=== PATIENT | female | born 1975 | race American Indian/Alaskan Native ===

== ENCOUNTER 2017-04-11 13:40 | Emergency (ER) | payer SELFPAY ==
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
[2017-04-11] MEDS: TORADOL IM ONE (16:22)
[2017-04-11 18:00] LABS: Bilirubin,Urine NEG (Negative); Blood,Urine MOD (Negative); Ketones,Urine NEG (Negative); Leukocyte Esterase,Urine NEG (Negative); Nitrite,Urine NEG (Negative); Protein,Urine <15 mg/dL mg/dL (Negative); Urobilinogen,Urine < 2.0 mg/dL (<2.0); WBC,Urine < 1.0 /HPF (0.0-6.0)
[2017-04-11 18:04] LABS: Bacteria,Urine 1+ /HPF (Negative)
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
--- NOTE | 2017-04-11 19:00 | Cat Scan Report ---
FINAL REPORT PROCEDURE: CT CERVICAL SPINE WO CON TECHNIQUE: Computerized tomography of the cervical spine was performed from the skull base to T1 without contrast material. HISTORY: neck pain, arm numbness COMPARISON: No prior studies are available for comparison. FINDINGS: C1-2: No significant abnormality. C2-3: No significant abnormality. C3-4: Small bony overgrowth at the left neuroforamen at C3-4 resulting in suspected mild to moderate left neuroforaminal narrowing C4-5: Mild broad disc bulge suspected. Minimal left neuroforaminal narrowing secondary to bony overgrowth. C5-6: Obscured by artifact related to shoulders and motion. There may be a moderate broad disc bulge with central disc protrusion but indeterminate due to artifacts. Recommend MRI correlation. C6-7: No significant abnormality. C7-T1: No significant abnormality. Other: No additional findings. IMPRESSION: Evidence to suggest mild to minimal left neuroforaminal narrowing C3-4 C4-5 secondary to bony overgrowth. Possible disc bulging and or protrusion at C5-6 indeterminate. Recommend MRI cervical spine to better evaluate the discs and nerve root sleeves.
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
[2017-04-11 22:19] VITALS: BP 115/69
== END 2017-04-11 19:15 | disposition left against medical advice (07) ==
LOC: ED 13:40
DX: S90.32XA Contusion of left foot, initial encounter (principal); S39.012A Strain of muscle, fascia and tendon of lower back, initial encounter; R20.0 Anesthesia of skin; M54.2 Cervicalgia; V49.49XA Driver injured in collision with other motor vehicles in traffic accident, initial encounter; Y93.9 Activity, unspecified; Y92.9 Unspecified place or not applicable; Y99.9 Unspecified external cause status
CPT/HCPCS: 70450; 72100; 72125; 73630; 81001; 81025; 96372; 99284; J1885; J2930

== ENCOUNTER 2017-04-14 20:20 | Emergency (ER) | payer SELFPAY ==
[2017-04-15] MEDS ORDERED: CLEOCIN IM ONE (01:34)
[2017-04-15] MEDS ORDERED: PERCOCET 5/325 PO ONE (01:34)
[2017-04-15] MEDS ORDERED: BOOSTRIX IM ONE (01:34)
[2017-04-15] MEDS ORDERED: TRIPLE ANTIBIOTIC TP ONE (01:34)
--- NOTE | 2017-04-15 01:34 | Emergency Department Report ---
- General Chief complaint: Extremity Injury, Lower Stated complaint: LT FOOT PAIN, LT TOE PAIN Time Seen by Provider: 04/14/17 23:48 Source: patient, family Mode of arrival: Ambulatory Limitations: No Limitations - History of Present Illness Initial comments: Patient reports that on Wednesday which was 2 days ago she had a pedicure and her toes to both feet had drain in around the nail bed. She said they were using 0 on her toes and she thinks that it infected her toes. She reports pain throughout a 10. And she also reports that she saw yellow pus coming from around the toes. She also said that the nail to her big toe on right foot is cracked down the middle. Pain is worse with movement and touch that it rests. She says she took [id number] pain medication but it did not help. Her tetanus vaccine is not up-to-date. MD complaint: other (complaining of infected great toe to both feet after getting pedicure) Onset/Timin -: days(s) Tetanus Up to Date: no Location: L foot (left great toe), R foot Severity: mild Severity scale (0 -10): 3 Quality: sharp Consistency: constant Improves with: immobilization, rest Worsens with: palpation, movement Context: other (injury to nail bed on both feet) Associated symptoms: athralgias Treatments Prior to Arrival: attempted to drain pus at, OTC topical medication - Related Data Previous Rx's Medication Instructions Recorded Last Taken Type Cyclobenzaprine [Flexeril] 10 mg PO TID PRN #15 tablet 04/11/17 Unknown Rx Naproxen [Naprosyn] 500 mg PO BID #20 tablet 04/11/17 Unknown Rx Acetaminophen/Codeine [Tylenol 1 tab PO Q6H PRN #12 tab 04/15/17 Unknown Rx /Codeine # 3 tab] Cephalexin [Keflex] 500 mg PO Q8HR #21 cap 04/15/17 Unknown Rx Ibuprofen [Motrin] 600 mg PO Q8H PRN #15 tablet 04/15/17 Unknown Rx Allergies Allergy/AdvReac Type Severity Reaction Status Date / Time No Known Allergies Allergy Unverified 04/11/17 13:53 Abscess Boil HPI - HPI Chief Complaint: Extremity Injury, Lower Stated Complaint: LT FOOT PAIN, LT TOE PAIN Time Seen by Provider: 04/14/17 23:48 Home Medications: Previous Rx's Medication Instructions Recorded Last Taken Type Cyclobenzaprine [Flexeril] 10 mg PO TID PRN #15 tablet 04/11/17 Unknown Rx Naproxen [Naprosyn] 500 mg PO BID #20 tablet 04/11/17 Unknown Rx Acetaminophen/Codeine [Tylenol 1 tab PO Q6H PRN #12 tab 04/15/17 Unknown Rx /Codeine # 3 tab] Cephalexin [Keflex] 500 mg PO Q8HR #21 cap 04/15/17 Unknown Rx Ibuprofen [Motrin] 600 mg PO Q8H PRN #15 tablet 04/15/17 Unknown Rx Allergies/Adverse Reactions: Allergies Allergy/AdvReac Type Severity Reaction Status Date / Time No Known Allergies Allergy Unverified 04/11/17 13:53 ED Review of Systems ROS: Stated complaint: LT FOOT PAIN, LT TOE PAIN Other details as noted in HPI Comment: All other systems reviewed and negative Constitutional: no symptoms reported Respiratory: no symptoms reported Cardiovascular: denies: chest pain, palpitations, dyspnea on exertion, orthopnea , edema, syncope, paroxysmal nocturnal dyspnea Gastrointestinal: denies: abdominal pain, nausea, vomiting, diarrhea, constipation Musculoskeletal: arthralgia, other (nail bed injury). denies: back pain, joint swelling, myalgia Skin: other (sent report that infection around toenail.) Neurological: abnormal gait (due to pain from infected toenails). denies: headache, weakness, numbness, paresthesias, confusion ED Past Medical Hx - Past Medical History Previous Medical History?: No - Surgical History Past Surgical History?: No - Family History Family history: no significant - Social History Smoking Status: Never Smoker Substance Use Type: None - Medications Home Medications: Home Medications Medication Instructions Recorded Confirmed Last Taken Type Cyclobenzaprine [Flexeril] 10 mg PO TID PRN #15 tablet 04/11/17 Unknown Rx Naproxen [Naprosyn] 500 mg PO BID #20 tablet 04/11/17 Unknown Rx Acetaminophen/Codeine [Tylenol 1 tab PO Q6H PRN #12 tab 04/15/17 Unknown Rx /Codeine # 3 tab] Cephalexin [Keflex] 500 mg PO Q8HR #21 cap 04/15/17 Unknown Rx Ibuprofen [Motrin] 600 mg PO Q8H PRN #15 tablet 04/15/17 Unknown Rx ED Physical Exam - General Limitations: No Limitations General appearance: alert, in no apparent distress - Head Head exam: Present: atraumatic, normocephalic, normal inspection - Eye Eye exam: Present: normal appearance, PERRL, EOMI Pupils: Present: normal accommodation - Neck Neck exam: Present: normal inspection, full ROM. Absent: tenderness, meningismus, lymphadenopathy - Respiratory Respiratory exam: Present: normal lung sounds bilaterally. Absent: respiratory distress, wheezes, chest wall tenderness, accessory muscle use, decreased breath sounds - Cardiovascular Cardiovascular Exam: Present: regular rate, normal rhythm, normal heart sounds. Absent: systolic murmur, diastolic murmur - GI/Abdominal GI/Abdominal exam: Present: soft, normal bowel sounds. Absent: distended - Extremities Exam Extremities exam: Present: normal inspection, full ROM, normal capillary refill , other (no clubbing, cyanosis or edema to extremities. +2 pulses to extremities. No neurovascular compromise). Absent: tenderness, pedal edema, joint swelling, calf tenderness - Neurological Exam Neurological exam: Present: alert, oriented X3, abnormal gait (due to the pain to great toes on both feet), reflexes normal. Absent: motor sensory deficit - Psychiatric Psychiatric exam: Present: normal affect, normal mood - Skin Skin exam: Present: warm, dry, intact, erythema, other (patient with tenderness to great toenail on both feet.). Absent: petechiae, pallor - Expanded Skin Exam Expanded Type of lesion: Present: other (tenderness and erythema to great toe on both feet. No drainage noted.) Distribution of rash: other (great toes both feet) Description of rash: Present: tenderness, erythematous, swelling (mild swelling great toes both feet), other (nailbed intact. Nail intact to nailbed. Noted nail cracked without any nail bed injury.). Absent: confluent, bullous, petechial, purpuic, urticarial, crusting, discharge, fluctuant, indurated ED Course Vital Signs 04/14/17 21:05 Temperature 98.1 F Pulse Rate 71 Respiratory 20 Rate Blood Pressure 111/66 [Right] O2 Sat by Pulse 100 Oximetry - Reevaluation(s) Reevaluation #1: 04/15/17 02:22 Both great toes cleansed with iodine and normal saline and Neosporin ointment and placed followed by sterile dry dressing. Patient given crutches at her request because she said it's difficult for her to ambulate. Patient given [place] 5/325 2 tablets, clindamycin 600 mg IM and Boostrix 0.5 mL emergency room with no adverse reaction. ED Medical Decision Making - Medical Decision Making ED Course: Patient here reported that she has nail injury to great toes on both feet. She said this happened at the nail shop 2 days ago. She said she has pus coming from around her nailbed with nail injury to great toe on right foot. Patient that she is having pain worse with walking. Physical findings for intact nail on nailbed without any damage to cuticles but damage to right great toenail with cellulitis around great toenail to both feet. Patient was given Boostrix 0.5 mL injection, clindamycin 600 mg injection in emergency room to update tetanus and infection. She was given [place] 5/325 2 tablets emergency room for pain to great toenails. Patient requested crutches because she said it 's difficult to bear weight. Both great toenails cleansed with iodine and normal saline and Neosporin ointment placed followed by sterile dry dressing. I discussed the patient she will need to follow up with sock ironer for further evaluation and treatment. Patient discharged home in stable condition with prescription for Tylenol No. 3, Motrin and Keflex. Critical care attestation.: If time is entered above; I have spent that time in minutes in the direct care of this critically ill patient, excluding procedure time. ED Disposition Clinical Impression: Toe pain, bilateral Cellulitis of great toe Qualifiers: Laterality: unspecified laterality Qualified Code(s): L03.039 - Cellulitis of unspecified toe Disposition: - TO HOME OR SELFCARE Is pt being admited?: No Does the pt Need Aspirin: No Condition: Stable Instructions: Arthralgia (ED), Cellulitis (ED), Paronychia (ED) Additional Instructions: keep affected areas clean and dry Take antibiotic as prescribed Consult feet in Epsom salts twice daily and dry toes and apply Neosporin ointment. Tylenol 3 causes drowsiness so please do not drive or operate heavy machinery while taking this medication Prescriptions: Acetaminophen/Codeine [Tylenol /Codeine # 3 tab] 1 tab PO Q6H PRN #12 tab PRN Reason: Pain Cephalexin [Keflex] 500 mg PO Q8HR #21 cap Ibuprofen [Motrin] 600 mg PO Q8H PRN #15 tablet PRN Reason: Pain Referrals: LIANG BROWN DPM [Staff Physician] - 04/16/17 [facility] [Outside] - 04/16/17 Forms: Work/School Release Form(ED)
[2017-04-15 03:29] VITALS: BP 116/70
== END 2017-04-15 03:00 | disposition home or self-care (01) ==
LOC: ED 20:20
DX: L03.032 Cellulitis of left toe (principal); L03.031 Cellulitis of right toe; M79.675 Pain in left toe(s); M79.674 Pain in right toe(s); X58.XXXA Exposure to other specified factors, initial encounter; Y93.89 Activity, other specified; Y92.89 Other specified places as the place of occurrence of the external cause; Y99.8 Other external cause status
CPT/HCPCS: 90471; 90715; 96372; A6250

== ENCOUNTER 2017-04-16 12:44 | Emergency (ER) | payer SELFPAY ==
[2017-04-16 13:30] VITALS: BP 140/88
== END 2017-04-16 13:25 | disposition left against medical advice (07) ==
LOC: ED 12:44
DX: Z53.21 Procedure and treatment not carried out due to patient leaving prior to being seen by health care provider (principal)

== ENCOUNTER 2017-04-25 05:54 | Emergency (ER) | payer SELFPAY ==
[2017-04-25 07:56] LABS: Anion Gap 16 mmol/L; BUN/Creatinine Ratio 13; Basophils % (Auto) 0.4 % (0.0-1.8); Blood Urea Nitrogen 9 mg/dL (7-17); Calcium 8.6 mg/dL (8.4-10.2); Carbon Dioxide 28 mmol/L (22-30); Chloride 102.3 mmol/L (98-107); Eosinophils % (Auto) 1.7 % (0.0-4.3); Glucose 94 mg/dL (65-100); Hematocrit 38.3 % (30.3-42.9); Hemoglobin 12.2 gm/dl (10.1-14.3); Mean Corpuscular HGB Conc 32 % (30-34); Mean Corpuscular Hemoglobin 28 pg (28-32); Mean Corpuscular Volume 89 fl (79-97); Platelet Count 251 K/mm3 (140-440); Red Blood Count 4.31 M/mm3 (3.65-5.03); Red Cell Distribution Width 15.2 % (13.2-15.2); Sodium 142 mmol/L (137-145); White Blood Count 8.9 K/mm3 (4.5-11.0)
[2017-04-25 08:54] LABS: Bilirubin,Urine NEG (Negative); Blood,Urine NEG (Negative); Ketones,Urine NEG (Negative); Leukocyte Esterase,Urine TR (Negative); Mucus,Urine FEW /HPF; Nitrite,Urine NEG (Negative); Protein,Urine <15 mg/dL mg/dL (Negative); Urobilinogen,Urine < 2.0 mg/dL (<2.0); WBC,Urine < 1.0 /HPF (0.0-6.0)
[2017-04-25] MEDS ORDERED: BACTRIM DS PO ONE (14:27)
[2017-04-25] MEDS ORDERED: TORADOL IM ONE (14:27)
[2017-04-25] MEDS ORDERED: NORCO 5/325 PO ONE (14:27)
[2017-04-25] MEDS ORDERED: ZOFRAN ODT PO ONE (14:52)
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
[2017-04-25 15:00] VITALS: BP 138/75
== END 2017-04-25 15:35 | disposition home or self-care (01) ==
LOC: ED 05:54
DX: L03.032 Cellulitis of left toe (principal); J02.9 Acute pharyngitis, unspecified; M79.7 Fibromyalgia
CPT/HCPCS: 36415; 80048; 81001; 84484; 84703; 85025; 93005; 93010; 96372; 99284; J1885; Q0162

== ENCOUNTER 2018-09-13 19:24 | Emergency (ER) | payer OTHER ==
[2018-09-13] MEDS ORDERED: PEPCID PO STA (20:41)
[2018-09-13] MEDS ORDERED: DELTASONE PO STA (20:41)
--- NOTE | 2018-09-13 20:41 | Emergency Department Report ---
Blank Doc - Documentation Documentation: bitten by bed bugs last night and now has pruritis and sob. no fever or chills. dizziness.
[2018-09-13 20:43] VITALS: BP 106/66
--- NOTE | 2018-09-13 21:39 | XRay Report ---
PROCEDURE: XR CHEST ROUTINE 2V TECHNIQUE: PA and lateral chest radiographs were obtained. HISTORY: sob post bed but bites COMPARISONS: None. FINDINGS: Heart: Normal. Mediastinum/Vessels: Normal. Lungs/Pleural space: Normal. Bony thorax: No acute osseous abnormality. IMPRESSION: Normal examination. This document is electronically signed by Aleksandr Garcia MD., September 13 2018 09:36:43 PM ET
[2018-09-13] MEDS ORDERED: ZOFRAN ODT PO ONE (22:21)
[2018-09-13] MEDS ORDERED: IBUPROFEN PO ONE (22:21)
--- NOTE | 2018-09-13 22:22 | Emergency Department Report ---
- General Chief complaint: Skin Rash Stated complaint: DIZZY/BODY RASH Time Seen by Provider: 09/13/18 20:39 Source: patient Mode of arrival: Ambulatory Limitations: No Limitations - History of Present Illness Initial comments: 42-year-old -[place] female presented to the emergency room stating she woke up on Wednesday with bedbug bites all over her. Patient stated she started getting dizzy last night. She complains of generalized weakness and heaviness in her chest. Patient reports that she is itching and is painful. Patient admits that she is nauseated no vomiting, any nose and runny eyes. Last took a Goody powder about 4 PM she took a Benadryl about 4 PM she is followed by Dr. Velazquez at [facility]. MD complaint: insect bite/sting -: days(s) (1) Severity: severe Severity scale (0 -10): 10 - Related Data Previous Rx's Medication Instructions Recorded Last Taken Type Cyclobenzaprine [Flexeril] 10 mg PO TID PRN #15 tablet 04/11/17 Unknown Rx Naproxen [Naprosyn] 500 mg PO BID #20 tablet 04/11/17 Unknown Rx Acetaminophen/Codeine [Tylenol 1 tab PO Q6H PRN #12 tab 04/15/17 Unknown Rx /Codeine # 3 tab] cephALEXin [Keflex] 500 mg PO Q8HR #21 cap 04/15/17 Unknown Rx HYDROcodone/APAP 5-325 [[place] 1 each PO Q6HR PRN #20 tablet 04/25/17 Unknown Rx 5/325] Ondansetron [Zofran Odt] 4 mg PO Q8HR PRN #20 tab.rapdis 04/25/17 Unknown Rx Sulfamethoxazole/Trimethoprim 1 each PO BID #20 tablet 04/25/17 Unknown Rx [Bactrim DS TAB] Cetirizine HCl [ZyrTEC] 10 mg PO QDAY #30 capsule 09/13/18 Unknown Rx Ibuprofen [Motrin 600 MG tab] 600 mg PO Q8H PRN #15 tablet 09/13/18 Unknown Rx Allergies Allergy/AdvReac Type Severity Reaction Status Date / Time No Known Allergies Allergy Verified 09/13/18 19:30 Abscess Boil HPI - HPI Chief Complaint: Skin Rash Stated Complaint: DIZZY/BODY RASH Time Seen by Provider: 09/13/18 20:39 Home Medications: Previous Rx's Medication Instructions Recorded Last Taken Type Cyclobenzaprine [Flexeril] 10 mg PO TID PRN #15 tablet 04/11/17 Unknown Rx Naproxen [Naprosyn] 500 mg PO BID #20 tablet 04/11/17 Unknown Rx Acetaminophen/Codeine [Tylenol 1 tab PO Q6H PRN #12 tab 04/15/17 Unknown Rx /Codeine # 3 tab] cephALEXin [Keflex] 500 mg PO Q8HR #21 cap 04/15/17 Unknown Rx HYDROcodone/APAP 5-325 [[place] 1 each PO Q6HR PRN #20 tablet 04/25/17 Unknown Rx 5/325] Ondansetron [Zofran Odt] 4 mg PO Q8HR PRN #20 tab.rapdis 04/25/17 Unknown Rx Sulfamethoxazole/Trimethoprim 1 each PO BID #20 tablet 04/25/17 Unknown Rx [Bactrim DS TAB] Cetirizine HCl [ZyrTEC] 10 mg PO QDAY #30 capsule 09/13/18 Unknown Rx Ibuprofen [Motrin 600 MG tab] 600 mg PO Q8H PRN #15 tablet 09/13/18 Unknown Rx Allergies/Adverse Reactions: Allergies Allergy/AdvReac Type Severity Reaction Status Date / Time No Known Allergies Allergy Verified 09/13/18 19:30 ED Review of Systems ROS: Stated complaint: DIZZY/BODY RASH Other details as noted in HPI Comment: All other systems reviewed and negative Constitutional: denies: chills, fever Eyes: denies: eye pain, eye discharge, vision change ENT: denies: ear pain, throat pain Respiratory: denies: cough, shortness of breath, wheezing Cardiovascular: denies: chest pain, palpitations Skin: rash ED Past Medical Hx - Past Medical History Previous Medical History?: Yes Additional medical history: Cellulitis of feet. Fibromyalgia, chronic pain - Surgical History Past Surgical History?: Yes Additional Surgical History: , Tonsillectomy, - Social History Smoking Status: Never Smoker Substance Use Type: None - Medications Home Medications: Home Medications Medication Instructions Recorded Confirmed Last Taken Type Cyclobenzaprine [Flexeril] 10 mg PO TID PRN #15 tablet 04/11/17 Unknown Rx Naproxen [Naprosyn] 500 mg PO BID #20 tablet 04/11/17 Unknown Rx Acetaminophen/Codeine [Tylenol 1 tab PO Q6H PRN #12 tab 04/15/17 Unknown Rx /Codeine # 3 tab] cephALEXin [Keflex] 500 mg PO Q8HR #21 cap 04/15/17 Unknown Rx HYDROcodone/APAP 5-325 [[place] 1 each PO Q6HR PRN #20 tablet 04/25/17 Unknown Rx 5/325] Ondansetron [Zofran Odt] 4 mg PO Q8HR PRN #20 tab.rapdis 04/25/17 Unknown Rx Sulfamethoxazole/Trimethoprim 1 each PO BID #20 tablet 04/25/17 Unknown Rx [Bactrim DS TAB] Cetirizine HCl [ZyrTEC] 10 mg PO QDAY #30 capsule 09/13/18 Unknown Rx Ibuprofen [Motrin 600 MG tab] 600 mg PO Q8H PRN #15 tablet 09/13/18 Unknown Rx ED Physical Exam - General Limitations: No Limitations General appearance: alert, in no apparent distress - Head Head exam: Present: atraumatic, normocephalic - Eye Eye exam: Present: normal appearance - ENT ENT exam: Present: mucous membranes moist - Neck Neck exam: Present: normal inspection - Neurological Exam Neurological exam: Present: alert, oriented X3 - Psychiatric Psychiatric exam: Present: normal affect, normal mood - Skin Skin exam: Present: warm, dry, intact. Absent: rash ED Course Vital Signs 09/13/18 09/13/18 09/13/18 20:38 21:10 22:45 Temperature 99 F Pulse Rate 76 64 Respiratory 16 18 15 Rate Blood Pressure 106/66 O2 Sat by Pulse 99 100 Oximetry ED Medical Decision Making - Medical Decision Making Patient has been evaluated by this provider and [facility]. Was not able to appreciate any rashes. Discussed the patient take [id number] Claritin. Critical care attestation.: If time is entered above; I have spent that time in minutes in the direct care of this critically ill patient, excluding procedure time. ED Disposition Clinical Impression: Bed bug bite Qualifiers: Encounter type: initial encounter Qualified Code(s): W57.XXXA - Bitten or stung by nonvenomous insect and other nonvenomous arthropods, initial encounter Disposition: DC- TO HOME OR SELFCARE Is pt being admited?: No Does the pt Need Aspirin: No Condition: Stable Instructions: Insect Bite or Sting (ED) Additional Instructions: Please take medication as prescribed and as needed. Your x-ray of her chest was negative. Prescriptions: Ibuprofen [Motrin 600 MG tab] 600 mg PO Q8H PRN #15 tablet PRN Reason: Pain Cetirizine HCl [ZyrTEC] 10 mg PO QDAY #30 capsule Referrals: KELSIE DUKE MD [Staff Physician] - 3-5 Days Forms: Accompanied Note, Work/School Release Form(ED)
== END 2018-09-13 22:45 | disposition home or self-care (01) ==
LOC: ED 19:24
DX: S20.369A Insect bite (nonvenomous) of unspecified front wall of thorax, initial encounter (principal); M79.7 Fibromyalgia; G89.29 Other chronic pain; Z90.89 Acquired absence of other organs; W57.XXXA Bitten or stung by nonvenomous insect and other nonvenomous arthropods, initial encounter; Y93.89 Activity, other specified; Y92.89 Other specified places as the place of occurrence of the external cause; Y99.8 Other external cause status
CPT/HCPCS: 71046; 99283; J7512; Q0162

== ENCOUNTER 2018-11-06 08:14 | Emergency (ER) | payer OTHER ==
[2018-11-06 08:21] VITALS: BP 115/55
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
[2018-11-06] MEDS ORDERED: FLEXERIL PO ONE (10:02)
[2018-11-06] MEDS ORDERED: IBUPROFEN PO ONE (10:02)
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
== END 2018-11-06 11:10 | disposition home or self-care (01) ==
LOC: ED 08:14
DX: S16.1XXA Strain of muscle, fascia and tendon at neck level, initial encounter (principal); S39.012A Strain of muscle, fascia and tendon of lower back, initial encounter; K59.00 Constipation, unspecified; G89.29 Other chronic pain; V89.2XXA Person injured in unspecified motor-vehicle accident, traffic, initial encounter; Y93.89 Activity, other specified; Y92.488 Other paved roadways as the place of occurrence of the external cause; Y99.8 Other external cause status
CPT/HCPCS: 72040; 72100; 99283